=== PATIENT | female | born 1970 | race Caucasian/White ===

== ENCOUNTER 2016-05-31 10:37 | Inpatient (IN) | payer OTHER ==
[~2016-05-31] VITALS: Ht 165.1 cm; Wt 87.1 kg
[~2016-05-31 10:37] MED LIST: ALLERGY RELIE15.8 ML BOTH NARES; Aspirin E.C. PO; BUSPAR15 MG PO; EFFEXOR XR150 MG PO; KLONOPIN1 MG PO; KlonoPIN PO; LYRICA50 MG PO; LYRICA75 MG PO; Milk Of Magnesia,MOM PO; PROZAC20 MG PO; Percocet 5/325,Endoc PO; PriLOSEC OTC PO; TYLENOL EXTRA500 MG PO; Tylenol Extra Streng PO; XANAX0.5 MG PO; Xanax PO
[2016-05-31 13:04] VITALS: BP 104/60
[2016-05-31 22:15] VITALS: BP 146/84
[2016-05-31 23:06] LABS: HEMATOCRIT 37.4 % (36.0-46.0); MCH 29.5 PG (29.0-34.0); MCHC 32.6 G/DL (30.0-36.0); MCV 90.3 FL (83-99); MEAN PLAT.VOLUME 9.5 uM^3 (9.5-12.4); PLATELET COUNT 267 K/uL (156-360); RBC DIS.WIDTH-CV 13.4 % (11.8-14.6); RBC DIS.WIDTH-SD 44.3 % (39-53); RED BLOOD COUNT 4.14 M/uL (3.80-5.20); WHITE BLOOD COUNT 8.9 K/uL (4.1-10.2)
[2016-05-31 23:33] LABS: ANION GAP 8 MEQ/L (2-14); CHLORIDE 104 MEQ/L (99-109); POTASSIUM 4.2 MEQ/L (3.7-5.4); SAMPLE HEMOLYSIS CHECK 0; SAMPLE ICTERIC CHECK 0; SAMPLE LIPEMIA CHECK 0; SODIUM 137 MEQ/L (136-147)
[2016-05-31 23:38] LABS: GFR ESTIMATE (CALCULATED) > 59 mL/min/; GLUCOSE 144 mg/dL (70-99); UREA NITROGEN (BUN) 11 mg/dL (9-23)
[2016-06-01 04:50] VITALS: BP 110/57
[2016-06-01 04:55] VITALS: BP 110/57
[2016-06-01 07:01] LABS: HEMATOCRIT 38.8 % (36.0-46.0); MCH 30.2 PG (29.0-34.0); MCHC 32.7 G/DL (30.0-36.0); MCV 92.2 FL (83-99); MEAN PLAT.VOLUME 10.1 uM^3 (9.5-12.4); PLATELET COUNT 308 K/uL (156-360); RBC DIS.WIDTH-CV 13.7 % (11.8-14.6); RBC DIS.WIDTH-SD 45.6 % (39-53); RED BLOOD COUNT 4.21 M/uL (3.80-5.20); WHITE BLOOD COUNT 10.8 K/uL (4.1-10.2)
[2016-06-01 07:28] LABS: ANION GAP 10 MEQ/L (2-14); CHLORIDE 103 MEQ/L (99-109); GFR ESTIMATE (CALCULATED) > 59 mL/min/; POTASSIUM 4.4 MEQ/L (3.7-5.4); SAMPLE HEMOLYSIS CHECK 0; SAMPLE ICTERIC CHECK 0; SAMPLE LIPEMIA CHECK 0; SODIUM 140 MEQ/L (136-147); UREA NITROGEN (BUN) 10 mg/dL (9-23)
[2016-06-01 07:30] LABS: GLUCOSE 98 mg/dL (70-99)
[2016-06-01 08:00] VITALS: BP 116/57
[2016-06-01 08:30] VITALS: BP 116/57
[2016-06-01] MEDS ORDERED: TRAMADOL HCL50 MG PO (09:29)
== END 2016-06-01 11:17 | disposition home or self-care (01) | DRG 743 ==
LOC: 2SOUTH 10:37 → 2EAST 12:43 → 2SOUTH 12:43 → 2EAST 22:28
PROVIDERS: Obstetrics & Gynecology Gynecologic Oncology
DX: N83.201 Unspecified ovarian cyst, right side (principal); N83.202 Unspecified ovarian cyst, left side; N13.5 Crossing vessel and stricture of ureter without hydronephrosis; F17.200 Nicotine dependence, unspecified, uncomplicated; F41.9 Anxiety disorder, unspecified; F32.9 Major depressive disorder, single episode, unspecified; G47.30 Sleep apnea, unspecified; G25.81 Restless legs syndrome; N73.6 Female pelvic peritoneal adhesions (postinfective)
CPT/HCPCS: 36415; 80048; 85027; 86850; 86900; 86901; 86920; 88304; 88305; C1758; J0131; J1100; J1170; J1580; J1885; J1940; J2250; J2270; J2405; J2550; J2710; J3010; J7050; S0030

== ENCOUNTER 2016-07-24 05:27 | Day surgery (SDC) | payer OTHER ==
[~2016-07-24] VITALS: Ht 165.1 cm; Wt 81.0 kg
[~2016-07-24 05:27] MED LIST changes: +ALEVE220 MG PO; +COLACE100 MG PO; +DAILY VALUE1 EACH PO; +ESTRACE1 MG PO; +MELATIN3 MG PO; +TRAMADOL HCL50 MG PO
[2016-07-24 05:48] VITALS: BP 107/53
[2016-07-24 10:00] VITALS: BP 127/65
[2016-07-24 11:16] VITALS: BP 114/67
== END 2016-07-24 11:26 | disposition home or self-care (01) ==
LOC: SDC 05:27
DX: N13.30 Unspecified hydronephrosis (principal); N20.0 Calculus of kidney; F17.210 Nicotine dependence, cigarettes, uncomplicated; Z85.41 Personal history of malignant neoplasm of cervix uteri; M19.90 Unspecified osteoarthritis, unspecified site; F32.9 Major depressive disorder, single episode, unspecified; F41.9 Anxiety disorder, unspecified
CPT/HCPCS: 74420; C1876; J0690; J1100; J1580; J1885; J2250; J2405; J3010

== ENCOUNTER 2016-07-29 14:28 | Emergency (ER) | payer OTHER ==
[~2016-07-29] VITALS: Ht 165.1 cm; Wt 87.0 kg
[2016-07-29 15:02] LABS: BASOPHIL COUNT 0.1 K/uL (0-0.1); EOSINOPHIL COUNT 0.2 K/uL (0-0.3); HEMATOCRIT 39.3 % (36.0-46.0); IMMATURE GRANULOCYTE (%) 0.4 % (0.0-0.7); INSTRUMENT ABS NEUTROPHIL CT 6.2 K/uL; LYMPHOCYTE COUNT 1.4 K/uL (1.0-2.8); MCHC 31.8 G/DL (30.0-36.0); MCV 91.2 FL (83-99); MEAN PLAT.VOLUME 9.7 uM^3 (9.5-12.4); MONOCYTE (%) 5.8 % (3-12); MONOCYTE COUNT 0.5 K/uL (0-0.8); NEUTROPHIL (%) 74.1 % (45-76); NEUTROPHIL COUNT 6.2 K/uL (1.8-6.4); PLATELET COUNT 287 K/uL (156-360); RBC DIS.WIDTH-CV 13.9 % (11.8-14.6); RBC DIS.WIDTH-SD 46.9 % (39-53); RED BLOOD COUNT 4.31 M/uL (3.80-5.20); WHITE BLOOD COUNT 8.3 K/uL (4.1-10.2)
[2016-07-29] MEDS ORDERED: ENDOCET 5-3251 EACH PO (15:05)
[2016-07-29] MEDS ORDERED: TRAMADOL HCL50 MG PO (15:06)
[2016-07-29] MEDS ORDERED: BUSPIRONE HCL15 MG PO (15:07)
[2016-07-29] MEDS ORDERED: LYRICA75 MG PO (15:08)
[2016-07-29 15:10] LABS: CHLORIDE 106 mEq/L (99-109); POTASSIUM 4.5 mEq/L (3.7-5.4); SODIUM 138 mEq/L (136-147)
[2016-07-29 15:12] LABS: GLUCOSE 105 mg/dL (70-99)
[2016-07-29 15:14] LABS: ANION GAP 10 MEQ/L (2-14)
[2016-07-29 15:16] LABS: GFR ESTIMATE (CALCULATED) > 59 mL/min/
[2016-07-29 15:17] LABS: UREA NITROGEN (BUN) 12 mg/dL (9-23)
[2016-07-29 15:18] LABS: ADD MIUA? YES; BILIRUBIN NEGATIVE; BLOOD LARGE; COLOR YELLOW ((YELLOW)); GLUCOSE (STRIP) NEGATIVE; KETONES NEGATIVE; LEUKOCYTES MODERATE; NITRITE NEGATIVE; PROTEIN (STRIP) 100; SPECIFIC GRAVITY 1.014 (1.000-1.030); UROBILINOGEN 0.2 MG/DL (0.2-1.0)
[2016-07-29 15:27] LABS: BACTERIA RARE /HPF; EPITHELIAL CELLS RARE /HPF; MUCUS TRACE /LPF; RED BLOOD CELLS TNTC /HPF (0-5); WHITE BLOOD CELLS TNTC /HPF (0-5)
[2016-07-29 15:31] LABS: CASTS NONE SEEN /LPF; CRYSTALS NONE SEEN
[2016-07-29] MEDS ORDERED: MACROBID100 MG PO (18:46)
[2016-07-29] MEDS ORDERED: PERCOCET 5/31 TABLET PO (18:46)
[2016-07-29 19:01] VITALS: BP 130/76
== END 2016-07-29 19:04 | disposition home or self-care (01) ==
LOC: EME 14:28
PROVIDERS: Physician Assistant
DX: N39.0 Urinary tract infection, site not specified (principal); N23 Unspecified renal colic; R10.9 Unspecified abdominal pain; Z98.890 Other specified postprocedural states; K21.9 Gastro-esophageal reflux disease without esophagitis; F17.200 Nicotine dependence, unspecified, uncomplicated; Z87.442 Personal history of urinary calculi
CPT/HCPCS: 74000; 76770; 80048; 81003; 85025; 87086; 99281; 99285; J0696; J1885; J7040; J7050

== ENCOUNTER → 2016-09-09 | Outpatient (CLI) | payer OTHER ==
[~2016-09-09] MED LIST changes: +BUSPIRONE HCL15 MG PO; +ENDOCET 5-3251 EACH PO; +MACROBID100 MG PO; +PERCOCET 5/31 TABLET PO
== END | disposition home or self-care (01) ==
LOC: NUC 10:34
DX: N13.30 Unspecified hydronephrosis (principal)
CPT/HCPCS: 78709; A9562

== ENCOUNTER → 2017-09-15 | Outpatient (CLI) | payer MEDICARE, OTHER | END | disposition home or self-care (01) | LOC: CDC 12:29 | DX: Z01.810 Encounter for preprocedural cardiovascular examination (principal); M19.042 Primary osteoarthritis, left hand; M79.642 Pain in left hand; G56.02 Carpal tunnel syndrome, left upper limb | CPT/HCPCS: 93000 ==